=== PATIENT | female | born 1980 | race African-American/Black ===

== ENCOUNTER 2023-09-05 23:46 | Emergency (ER) | payer BC, MEDICAID ==
[~2023-09-05] VITALS: Ht 172.7 cm; Wt 113.0 kg
[2023-09-05 23:50] VITALS: BP 154/87; PULSE 87; RESP 20; TEMP 98.4; O2SAT 100
[2023-09-05] MEDS ORDERED: ONDANSETRON HCL 4MG/2ML INJ IV STA (23:56)
[2023-09-06] MEDS ORDERED: SODIUM CHLORIDE 0.9% 1,000 ML IV ONE
[2023-09-06 00:23] LABS: BASOPHILS % 0.7 % (0.0-2.0); DIFFERENTIAL COMMENT 0; EOSINOPHILS % 0.3 % (0.0-5.0); HEMATOCRIT. 29.2 % (36.0-48.0); HEMOGLOBIN. 9.1 g/dL (12.0-16.0); LYMPHOCYTES % 24.6 % (20.0-50.0); MEAN CORPUSCULAR HGB CONC 31.3 g/dL (31.0-37.0); MEAN CORPUSCULAR VOLUME 70.5 fL (81.0-99.0); MEAN PLATELET VOLUME 8.7 fl (7.4-10.4); MONOCYTES % 7.6 % (2.0-8.0); NEUTROPHILS % 66.8 % (40.0-76.0); PLATELET 283 x1000/uL (130-400); RED BLOOD CELL COUNT 4.14 mill/uL (4.2-5.4); RED CELL DISTRIBUTION WIDTH 19.2 % (11.6-14.6); WHITE BLOOD COUNT 8.6 x1000/uL (4.5-11.0)
[2023-09-06 00:31] LABS: PROTHROMBIN TIME 11.4 sec (9.6-11.0)
[2023-09-06 00:38] LABS: ALANINE AMINOTRANSFERASE 14 IU/L (10-49); ALBUMIN 4.8 g/dL (3.2-4.8); ASPARTATE AMINOTRANSFERASE 23 IU/L (<34); BILIRUBIN TOTAL 0.5 mg/dL (0.1-1.0); CALCIUM 8.7 mg/dL (8.7-10.4); CARBON DIOXIDE 21 mEq/L (21-32); CHLORIDE 107 mEq/L (98-107); CREATININE 0.9 mg/dL (0.6-1.0); GLUCOSE 112 mg/dL (70-105); POTASSIUM 3.3 mEq/L (3.5-5.1); PROTEIN TOTAL 8.2 g/dL (6.0-8.3); SODIUM 138 mEq/L (136-145); UREA NITROGEN BLOOD 9 mg/dL (9-23)
[2023-09-06 00:40] LABS: ETHANOL BLOOD < 10 mg/dL (<10)
[2023-09-06 00:43] LABS: HCG SCREEN NEGATIVE
== END 2023-09-06 03:16 | disposition left against medical advice (07) ==
LOC: ER 23:46
DX: R11.2 Nausea with vomiting, unspecified (principal)
CPT/HCPCS: 80053; 80320; 84703; 83690; 85025; 85610; 36415; 99283; J7030; G0480